=== PATIENT | male | born 1960 | race Caucasian/White ===

== ENCOUNTER → 2024-05-12 12:03 | Outpatient (REF) | payer OTHER, SELFPAY | LOC: RAD 12:03 | PROVIDERS: ATTENDING PHYSICIAN Internal Medicine Nephrology | DX: R05.9 Cough, unspecified (principal) | CPT/HCPCS: 71046 ==

== ENCOUNTER → 2024-06-08 07:05 | Outpatient (REF) | payer OTHER, SELFPAY | LOC: RAD 07:05 | PROVIDERS: ATTENDING PHYSICIAN Specialist; FAMILY PHYSICIAN Internal Medicine Nephrology | DX: N50.9 Disorder of male genital organs, unspecified (principal) | CPT/HCPCS: 74176 ==

== ENCOUNTER → 2025-06-15 09:08 | Outpatient (REF) | payer MEDICARE, SELFPAY ==
[2025-06-15 11:00] LABS: Hematocrit 38.2 % (39.0-52.0); Hemoglobin 13.2 g/dL (13.0-18.0); Mean Corp Hgb Conc. 34.6 g/dL (33.0-37.0); Mean Corpuscular Volume 89.5 fL (80.0-94.0); Platelet Count 103 10^3/uL (130-400); Red Cell Dist. Width 13.2 % (11.5-14.5)
[2025-06-15 11:25] LABS: Blood Urea Nitrogen 15 mg/dl (9-20); Calcium 9.4 mg/dl (8.4-10.2); Carbon Dioxide 29 mmol/L (22-30); Chloride 107 mmol/L (98-107); Glucose 137 mg/dl (70-99); Potassium 4.7 mmol/L (3.5-5.1); Sodium 142 mmol/L (135-145); eGFR > 60.00
== END ==
LOC: SDSPAT 09:08
PROVIDERS: ATTENDING PHYSICIAN Specialist; FAMILY PHYSICIAN Internal Medicine Nephrology
DX: Z01.818 Encounter for other preprocedural examination (principal)
CPT/HCPCS: 36415; 80048; 85027; 93005

== ENCOUNTER 2025-06-24 06:11 | Day surgery (SDC) | payer MEDICARE, SELFPAY ==
[2025-06-15 14:18] VITALS: BMI 31.6
[2025-06-24 07:36] VITALS: BMI 31.6
[2025-06-24 07:44] LABS: Glucose - Point of Care 162 mg/dl (70-99)
[2025-06-24] MEDS: NORMOSOL-R/PLASMALYTE-A 1000 IV (07:44)
[2025-06-24 07:57] VITALS: BP 171/88
== END 2025-06-24 08:14 | disposition home or self-care (01) ==
LOC: SDS 06:11
PROVIDERS: ATTENDING PHYSICIAN Specialist
DX: N50.9 Disorder of male genital organs, unspecified (principal); Z53.9 Procedure and treatment not carried out, unspecified reason
CPT/HCPCS: 55040; 82962

== ENCOUNTER 2025-07-01 06:30 | Day surgery (SDC) | payer MEDICARE, SELFPAY ==
[2025-07-01] VITALS (9 sets, daily range): BP systolic 110–144; BP diastolic 67–92; BMI 31.6
[2025-07-01 09:04] LABS: Glucose - Point of Care 147 mg/dl (70-99)
[2025-07-01] MEDS: NORMOSOL-R/PLASMALYTE-A 1000 IV (09:33)
[2025-07-01] MEDS: TYLENOL 1000 MG PO (10:19)
== END 2025-07-01 11:51 | disposition home or self-care (01) ==
LOC: SDS 06:30
PROVIDERS: ATTENDING PHYSICIAN Specialist
DX: N43.3 Hydrocele, unspecified (principal)
CPT/HCPCS: 55040; 82962